=== PATIENT | female | born 2000 | race Caucasian/White ===

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

== ENCOUNTER 2020-06-17 20:09 | Emergency (ER) | payer BC ==
[2020-06-17] MEDS ORDERED: Sodium Chloride 0.9% 2.5 ML Syringe FLUSH PRN (20:28)
[2020-06-17] MEDS ORDERED: Sodium Chloride 0.9% 10 ML Syringe FLUSH PRN (20:28)
[2020-06-17] MEDS ORDERED: Ondansetron 4 MG/2 ML SDV IVPUSH ONE (20:28)
[2020-06-17] MEDS ORDERED: Morphine 4 MG/ML Syringe IVPUSH ONE (20:28)
[2020-06-17] MEDS ORDERED: Lactated Ringers 1,000 ML IV ONE (20:28)
[2020-06-17 21:05] LABS: BLOOD UREA NITROGEN,BUN 19 mg/dL (7.0-18.0); CARBON DIOXIDE,CO2 25.7 mmol/L (21.0-32.0); CHLORIDE,CL 104 mmol/L (98-107); GLUCOSE RANDOM 85 mg/dL (74-106); LIPASE 210 U/L (73-393); POTASSIUM,K 4.1 mmol/L (3.5-5.1); SODIUM,NA 141 mmol/L (136-145)
[2020-06-17] MEDS ORDERED: Iopamidol 755 Mg/ML 100 ML Bottle IVPUSH STA (21:33)
--- NOTE | 2020-06-17 21:46 | CT ---
Indication: Right lower quadrant pain. Technique: Multiple contiguous axial images were obtained from the lung bases through the symphysis pubis after the intravenous administration of 90 milliliters Isovue 370. Please note that all CT scans at this facility use dose modulation, iterative reconstruction, and/or weight-based dosing when appropriate to reduce radiation dose to as low as reasonably achievable. Comparison: June 19, 2015. Findings: The lung bases are clear. The heart is normal in size. No pericardial effusion is identified. The liver, spleen, gallbladder, pancreas, adrenals, and kidneys are normal. No intrahepatic biliary ductal dilatation is identified. No hydronephrosis is identified. In the pelvis, the urinary bladder is normal. The uterus is grossly normal. The uterus is deviated to the right. A probable corpus luteum cyst is identified on the left. Probable follicles are identified on the right. A small amount of free fluid is identified within the pelvis. The small and large bowel are normal in caliber. The appendix is identified and is normal in caliber. This is best seen on images number [id number], series 3. The terminal ileum is mildly dilated. A single loop of small bowel in the right lower quadrant is fluid-filled. There is no evidence of obstruction. No free air or free fluid is identified within the abdomen or pelvis. The aorta is normal in caliber. A small amount of physiologic free fluid is identified within the pelvis. No free air is identified within the abdomen or pelvis. Impression: No evidence of appendicitis. The uterus is deviated to the right. There is probable follicles within the right ovary. Probable corpus luteum cyst is identified on the left. Please note that all CT scans at this facility use dose modulation, iterative reconstruction, and/or weight-based dosing when appropriate to reduce radiation dose to as low as reasonably achievable. Dictated by Shelby Concepcion MD @ Jun 17 2020 9:40PM Signed by Dr. Shelby Concepcion @ Jun 17 2020 9:45PM
--- NOTE | 2020-06-17 22:16 | EDM.PDOC ---
ED HPI GENERAL MEDICAL PROBLEM - General Chief Complaint: Abdominal Pain Stated Complaint: FEVER and abd pain Time Seen by Provider: 06/17/20 20:16 Source of Information: Reports: Patient History Limitations: Reports: No Limitations - History of Present Illness INITIAL COMMENTS - FREE TEXT/NARRATIVE: 19-year-old female with no past medical or surgical history presents with abdo kyle pain. Her abdominal pain started last night, is localized to the right lower quadrant, nonradiating, constant, dull aching, mild in severity. Associated with fever, and 2 episodes of bright red blood per rectum last night. She denies nausea, vomiting, diarrhea, chills, dysuria, urinary frequency or urgency, vaginal discharge. She is sexually active with one partner. ROS: A 10-point review of systems, other than pertinent positives and negatives as stated per HPI, is otherwise negative Past medical history: No additional pertinent history Past Surgical history: No additional pertinent history Social history: No additional pertinent history Family history: No additional pertinent history PHYSICAL EXAM General: AOx4, GCS = 15, smiling in no distress HEENT: dry mucous membrane Neck: supple, no meningismus, no Kernig or Brudzinski Cardiac: S1S2 RRR Respiratory: CTAB, no crackles or rales, no wheezing Abdomen: Soft, mild right lower quadrant tenderness, no rebound or guarding, nondistended, no pulsatile mass. Back: nontender Musculoskeletal: NVI distally, no deformity Neuro: No focal deficits, CN 2 - 12 WNL. Right Upper Abdomen Pain Score (Numeric/FACES): 5 - Related Data Allergies Allergy/AdvReac Type Severity Reaction Status Date / Time No Known Allergies Allergy Verified 06/17/20 20:29 Home Meds: Home Meds Control 11/17/16 [History] Ciprofloxacin [Ciprofloxacin HCl] 500 mg PO BID #20 tab 06/17/20 [Rx] Dicyclomine [Bentyl] 10 mg PO QIDACANDBED #12 cap 06/17/20 [Rx] metroNIDAZOLE [Flagyl] 500 mg PO Q8H #30 tab 06/17/20 [Rx] Past Medical History - Past Health History Medical/Surgical History: Denies Medical/Surgical History HEENT History: Reports: None Cardiovascular History: Reports: None Respiratory History: Reports: None Gastrointestinal History: Reports: None Genitourinary History: Reports: None 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 Musculoskeletal History: Reports: None Neurological History: Reports: None Psychiatric History: Reports: Depression Endocrine/Metabolic History: Reports: None Hematologic History: Reports: None Immunologic History: Reports: None Oncologic (Cancer) History: Reports: None - Past Surgical History Head Surgeries/Procedures: Reports: None HEENT Surgical History: Reports: None Cardiovascular Surgical History: Reports: None Respiratory Surgical History: Reports: None GI Surgical History: Reports: None Female Surgical History: Reports: None Musculoskeletal Surgical History: Reports: None Oncologic Surgical History: Reports: None Dermatological Surgical History: Reports: Skin Graft Social & Family History - Family History Family Medical History: No Pertinent Family History : Reports: Renal Calculus - Tobacco Use Tobacco Use Status *Q: Never Tobacco User Second Hand Smoke Exposure: No - Caffeine Use Caffeine Use: Reports: None - Recreational Drug Use Recreational Drug Use: No ED ROS GENERAL - Review of Systems Review Of Systems: See Below (see dictation) ED EXAM, GI/ABD - Physical Exam Exam: See Below (see dictation) Course - Vital Signs Last Recorded V/S: Last Vital Signs Temp 97.5 F 06/17/20 20:26 Pulse 70 06/17/20 21:30 Resp 16 06/17/20 20:26 BP 149/89 H 06/17/20 20:26 Pulse Ox 98 06/17/20 21:30 - Orders/Labs/Meds Orders: Active Orders 24 hr Category Date Time Status CORONAVIRUS COVID-19 PCR PHL Stat Lab 06/17/20 20:28 Ordered Sodium Chloride 0.9% [Saline Flush] Med 06/17/20 20:28 Active 10 ml FLUSH ASDIRECTED PRN Sodium Chloride 0.9% [Saline Flush] Med 06/17/20 20:28 Active 2.5 ml FLUSH ASDIRECTED PRN Saline Lock Insert [OM.PC] Stat Oth 06/17/20 20:28 Ordered Medication Orders Sodium Chloride (Saline Flush) 10 ml FLUSH ASDIRECTED PRN PRN Reason: Keep Vein Open Last Admin: 06/17/20 20:35 Dose: 10 ml Documented by: CARLTON Sodium Chloride (Saline Flush) 2.5 ml FLUSH ASDIRECTED PRN PRN Reason: Keep Vein Open Last Admin: 06/17/20 20:35 Dose: 2.5 ml Documented by: CARLTON Labs: Laboratory Tests 06/17/20 06/17/20 06/17/20 Range/Units 20:20 20:20 20:35 WBC 10.01 (4.0-11.0) K/uL RBC 5.08 (4.30-5.90) M/uL Hgb 14.6 (12.0-16.0) g/dL Hct 43.8 (36.0-46.0) % MCV 86.2 (80.0-98.0) fL MCH 28.7 (27.0-32.0) pg MCHC 33.3 (31.0-37.0) g/dL RDW Std Deviation 42.2 (28.0-62.0) fl RDW Coeff of Angel 13 (11.0-15.0) % Plt Count 305 (150-400) K/uL MPV 10.60 (7.40-12.00) fL Neut % (Auto) 59.3 (48.0-80.0) % Lymph % (Auto) 30.5 (16.0-40.0) % [place] % (Auto) 8.0 (0.0-15.0) % Eos % (Auto) 1.5 (0.0-7.0) % Baso % (Auto) 0.7 (0.0-1.5) % Neut # (Auto) 5.9 H (1.4-5.7) K/uL Lymph # (Auto) 3.1 H (0.6-2.4) K/uL [place] # (Auto) 0.8 (0.0-0.8) K/uL Eos # (Auto) 0.2 (0.0-0.7) K/uL Baso # (Auto) 0.1 (0.0-0.1) K/uL Nucleated RBC % 0.0 /100WBC Nucleated RBCs # 0 K/uL Lactate (0.20-2.00) mmol/L Sodium (136-145) mmol/L Potassium (3.5-5.1) mmol/L Chloride (98-107) mmol/L Carbon Dioxide (21.0-32.0) mmol/L BUN (7.0-18.0) mg/dL Creatinine (0.6-1.0) mg/dL Est Cr Clr Drug Dosing mL/min Estimated GFR (MDRD) ml/min Glucose (74-106) mg/dL Calcium (8.5-10.1) mg/dL Total Bilirubin (0.2-1.0) mg/dL AST (15-37) IU/L ALT (14-63) IU/L Alkaline Phosphatase (46-116) U/L Total Protein (6.4-8.2) g/dL Albumin (3.4-5.0) g/dL Globulin (2.6-4.0) g/dL Albumin/Globulin Ratio (0.9-1.6) Lipase (73-393) U/L Urine Color YELLOW Urine Appearance CLEAR Urine pH 6.0 (5.0-8.0) Ur Specific [place] 1.020 (1.001-1.035) Urine Protein NEGATIVE (NEGATIVE) mg/dL Urine Glucose (UA) NEGATIVE (NEGATIVE) mg/dL Urine Ketones NEGATIVE (NEGATIVE) mg/dL Urine Occult Blood NEGATIVE (NEGATIVE) Urine Nitrite NEGATIVE (NEGATIVE) Urine Bilirubin NEGATIVE (NEGATIVE) Urine Urobilinogen 0.2 (<2.0) EU/dL Ur Leukocyte Esterase NEGATIVE (NEGATIVE) Urine HCG, Qual NEGATIVE (NEGATIVE) 06/17/20 06/17/20 Range/Units 20:35 20:35 WBC (4.0-11.0) K/uL RBC (4.30-5.90) M/uL Hgb (12.0-16.0) g/dL Hct (36.0-46.0) % MCV (80.0-98.0) fL MCH (27.0-32.0) pg MCHC (31.0-37.0) g/dL RDW Std Deviation (28.0-62.0) fl RDW Coeff of Angel (11.0-15.0) % Plt Count (150-400) K/uL MPV (7.40-12.00) fL Neut % (Auto) (48.0-80.0) % Lymph % (Auto) (16.0-40.0) % [place] % (Auto) (0.0-15.0) % Eos % (Auto) (0.0-7.0) % Baso % (Auto) (0.0-1.5) % Neut # (Auto) (1.4-5.7) K/uL Lymph # (Auto) (0.6-2.4) K/uL [place] # (Auto) (0.0-0.8) K/uL Eos # (Auto) (0.0-0.7) K/uL Baso # (Auto) (0.0-0.1) K/uL Nucleated RBC % /100WBC Nucleated RBCs # K/uL Lactate 1.6 (0.20-2.00) mmol/L Sodium 141 (136-145) mmol/L Potassium 4.1 (3.5-5.1) mmol/L Chloride 104 (98-107) mmol/L Carbon Dioxide 25.7 (21.0-32.0) mmol/L BUN 19 H (7.0-18.0) mg/dL Creatinine 1.0 (0.6-1.0) mg/dL Est Cr Clr Drug Dosing 77.49 mL/min Estimated GFR (MDRD) > 60.0 ml/min Glucose 85 (74-106) mg/dL Calcium 8.7 (8.5-10.1) mg/dL Total Bilirubin 0.3 (0.2-1.0) mg/dL AST 13 L (15-37) IU/L ALT 16 (14-63) IU/L Alkaline Phosphatase 63 (46-116) U/L Total Protein 7.9 (6.4-8.2) g/dL Albumin 4.2 (3.4-5.0) g/dL Globulin 3.7 (2.6-4.0) g/dL Albumin/Globulin Ratio 1.1 (0.9-1.6) Lipase 210 (73-393) U/L Urine Color Urine Appearance Urine pH (5.0-8.0) Ur Specific [place] (1.001-1.035) Urine Protein (NEGATIVE) mg/dL Urine Glucose (UA) (NEGATIVE) mg/dL Urine Ketones (NEGATIVE) mg/dL Urine Occult Blood (NEGATIVE) Urine Nitrite (NEGATIVE) Urine Bilirubin (NEGATIVE) Urine Urobilinogen (<2.0) EU/dL Ur Leukocyte Esterase (NEGATIVE) Urine HCG, Qual (NEGATIVE) Meds: Medications Generic Name Dose Route Start Last Admin Trade Name Freq PRN Reason Stop Dose Admin Sodium Chloride 10 ml 06/17/20 20:28 06/17/20 20:35 Saline Flush FLUSH 10 ml ASDIRECTED PRN Administration Keep Vein Open Sodium Chloride 2.5 ml 06/17/20 20:28 06/17/20 20:35 Saline Flush FLUSH 2.5 ml ASDIRECTED PRN Administration Keep Vein Open Discontinued Medications Generic Name Dose Route Start Last Admin Trade Name Freq PRN Reason Stop Dose Admin Lactated Ringer's 1,000 mls @ 999 mls/hr 06/17/20 20:28 06/17/20 20:35 Ringers, Lactated IV 06/17/20 21:28 999 mls/hr .BOLUS ONE Administration Iopamidol 75 ml 06/17/20 21:33 06/17/20 21:34 Isovue-370 (76%) IVPUSH 06/17/20 21:34 75 ml ONETIME STA Administration Morphine Sulfate 4 mg 06/17/20 20:28 06/17/20 20:36 Morphine IVPUSH 06/17/20 20:29 4 mg ONETIME ONE Administration Ondansetron HCl 4 mg 06/17/20 20:28 06/17/20 20:35 Zofran IVPUSH 06/17/20 20:29 4 mg ONETIME ONE Administration - Re-Assessments/Exams Free Text/Narrative Re-Assessment/Exam: 06/17/20 22:15 After IV fluids and pain meds in the ER, her symptoms improved and is currently stable for discharge. I performed a repeat exam and did not appreciate new abnormal findings. Patient exhibits normal vital signs and has a normal gait on road test. I advised the patient to return to the ER for reevaluation if symptoms worsened, including fever, worsening pain, or any other worrisome symptoms. I instructed the patient to follow up with their PCP within 2-3 days. MEDICAL DECISION MAKING: I reviewed the patients past medical records, lab and radiographic findings. I discussed the case with the patient. My differential diagnosis included: Colitis, appendicitis, UTI. Patient's pain is localized to the right lower quadrant. CT A/P with IV contrast was performed, appendix was normal. CT did demonstrate mild dilation to the terminal ileum, I suspect this to be the cause of her pain. Given her history of 2 episodes of rectal bleeding with the fever, I will empirically cover for colitis with p.o. Cipro and Flagyl. Patient is stable for outpatient follow-up with PCP with strict return precautions. Departure - Departure Time of Disposition: 22:16 Disposition: Home, Self-Care 01 Condition: Good Clinical Impression: Abdominal pain, Colitis - Discharge Information *PRESCRIPTION DRUG MONITORING PROGRAM REVIEWED*: Not Applicable *COPY OF PRESCRIPTION DRUG MONITORING REPORT IN PATIENT CINDY: Not Applicable Prescriptions: Dicyclomine [Bentyl] 10 mg PO QIDACANDBED #12 cap Ciprofloxacin [Ciprofloxacin HCl] 500 mg PO BID #20 tab metroNIDAZOLE [Flagyl] 500 mg PO Q8H #30 tab Instructions: Abdominal Pain, Adult, [id number], Colitis, Food Choices to Help Relieve Diarrhea, Adult, Bloody Diarrhea Referrals: PCP,Not In Area [Primary Care Provider] - Additional Instructions: The need for follow-up, as well as the timing and circumstances, are variable depending upon the specifics of your emergency department visit. If you don't have a primary care physician on staff, we will provide you with a referral. We always advise you to contact your personal physician following an emergency department visit to inform them of the circumstance of the visit and for follow-up with them and/or the need for any referrals to a consulting specialist. The emergency department will also refer you to a specialist when appropriate. This referral assures that you have the opportunity for follow-up care with a specialist. All of these measure are taken in an effort to provide you with optimal care, which includes your follow-up. Under all circumstances we always encourage you to contact your private physician who remains a resource for coordinating your care. When calling for follow-up care, please make the office aware that this follow-up is from your recent emergency room visit. If for any reason you are refused follow-up, please contact the [facility] Emergency Department at and asked to speak to the emergency department charge nurse. If you do not have a primary care doctor, please follow up with the clinics below within 3-5 days. [facility] - Primary [facility] [address] [place] [id number] [facility] [address] [place] [id number] Sepsis Event Note (ED) - Evaluation Sepsis Screening Result: No Definite Risk - Focused Exam Vital Signs: Vital Signs Temp Pulse Resp BP Pulse Ox 06/17/20 21:30 70 98 06/17/20 20:26 97.5 F 107 H 16 149/89 H 99 - My Orders Last 24 Hours: My Active Orders 06/17/20 20:28 CORONAVIRUS COVID-19 PCR PHL Stat Sodium Chloride 0.9% [Saline Flush] 10 ml FLUSH ASDIRECTED PRN Sodium Chloride 0.9% [Saline Flush] 2.5 ml FLUSH ASDIRECTED PRN Saline Lock Insert [OM.PC] Stat - Assessment/Plan Last 24 Hours: My Active Orders 06/17/20 20:28 CORONAVIRUS COVID-19 PCR PHL Stat Sodium Chloride 0.9% [Saline Flush] 10 ml FLUSH ASDIRECTED PRN Sodium Chloride 0.9% [Saline Flush] 2.5 ml FLUSH ASDIRECTED PRN Saline Lock Insert [OM.PC] Stat
[2020-06-17 22:29] VITALS: BP 94/52; PULSE 85
== END 2020-06-17 22:29 | disposition home or self-care (01) ==
LOC: MW.ED 20:09
DX: K52.9 Noninfective gastroenteritis and colitis, unspecified (principal)
CPT/HCPCS: 36415; 74177; 80053; 81003; 81025; 83605; 83690; 85025; 96374; 96375; 99284; J2270; J2405; J7120; Q9967